=== PATIENT | male | born 1960 | race African-American/Black ===

== ENCOUNTER 2018-05-26 21:06 | Emergency (ER) | payer OTHER ==
--- NOTE | 2018-05-26 22:28 | ER Document Report ---
ED Medical Screen (RME) - General Chief Complaint: Eye Problem Stated Complaint: EYE PAIN Time Seen by Provider: 05/26/18 22:27 Notes: 57-year-old male with chief complaint of right-sided facial numbness since noon. Denies headache, denies focal numbness or weakness otherwise, denies any other current symptoms. Denies daily meds or significant medical history. - Related Data Allergies/Adverse Reactions: lactose [Lactose] Adverse Reaction (Verified 12/04/12 09:08) Past Medical History - Immunizations Hx Diphtheria, Pertussis, Tetanus Vaccination: No Physical Exam - Vital signs Vitals: Temp Pulse Resp BP Pulse Ox 97.7 F 74 16 142/91 H 96 05/26/18 21:26 05/26/18 21:26 05/26/18 21:26 05/26/18 21:26 05/26/18 21:26 - Neurological Orientation: AAOx4, Disoriented to events Pham Coma Scale Verbal: Oriented Pham Coma Scale Motor: Obeys Commands Speech: Normal Cranial nerves: Facial palsy - Inability to open mouth fully and has a droop on the right, Sensory deficit - Right-sided facial numbness. No: Forehead sparing , Gaze palsy Course - Re-evaluation Re-evalutation: Patient with right sided facial weakness and numbness, however he raises his eyebrows completely without any forehead flattening that would indicate this is Lopes's palsy. He is outside the window for TPA with symptoms that started at noon. Stroke evaluation workup initiated. - Vital Signs Vital signs: Temp Pulse Resp BP Pulse Ox 97.7 F 74 16 142/91 H 96 05/26/18 21:26 05/26/18 21:26 05/26/18 21:26 05/26/18 21:26 05/26/18 21:26 Doctor's Discharge - Discharge Referrals: LOCAL,NO [Primary Care Provider] - Follow up as needed
--- NOTE | 2018-05-26 22:57 | RADIOLOGY REPORT (SQ) ---
EXAM DESCRIPTION: XR CHEST 1 VIEW COMPLETED DATE/TME: 05/26/2018 22:27 CLINICAL HISTORY: 57 years, Male, right sided facial numbness and drooping COMPARISON: None. NUMBER OF VIEWS: 1 TECHNIQUE: Frontal view chest LIMITATIONS: None. FINDINGS: Heart size is normal. Lungs are clear. No pneumothorax IMPRESSION: Negative chest copyright 2010 [facility]- All Rights Reserved
--- NOTE | 2018-05-26 22:58 | RADIOLOGY REPORT (SQ) ---
EXAM DESCRIPTION: CT HEAD WITHOUT IV CONTRAST COMPLETED DATE/TME: 05/26/2018 22:27 CLINICAL HISTORY: 57 years, Male, right sided facial numbness and drooping This exam was performed according to our departmental dose-optimization program which includes automated exposure control, adjustment of the mA and/or kVp according to patient size and/or use of iterative reconstruction technique where applicable. FINDINGS: No acute intracranial hemorrhage, mass effect or midline shift. No extra-axial fluid collections. Ventricles and subarachnoid spaces are preserved. Oliva-white matter differentiation is preserved. Visualized paranasal sinuses and the mastoid air cells are clear. The skull is intact. IMPRESSION: No acute intracranial hemorrhage.
[2018-05-26 23:19] LABS: ABSOLUTE EOSINOPHILS # (AUTO) 0.1 10^3/uL (0.0-0.6); ABSOLUTE MONOCYTES (AUTO) 0.4 10^3/uL (0.1-1.4); ABSOLUTE NEUT (AUTO) 1.8 10^3/uL (1.7-8.2); BASOPHILS % (AUTO) 0.9 % (0-2); EOSINOPHILS % (AUTO) 3.4 % (0-6); HEMATOCRIT 44.6 % (37.9-51.0); HEMOGLOBIN 14.9 g/dL (13.5-17.0); LYMPHOCYTES % (AUTO) 46.5 % (13-45); MEAN CORPUSCULAR HGB CONC 33.3 g/dL (32.0-36.0); MEAN CORPUSCULAR VOLUME 81 fl (80-97); MONOCYTES % (AUTO) 8.8 % (3-13); PLATELET COUNT 233 10^3/uL (150-450); RED BLOOD COUNT 5.51 10^6/uL (4.35-5.55); RED CELL DISTRIBUTION WIDTH 14.2 % (11.5-14.0); SEGMENTED NEUTROPHILS % (AUTO) 40.4 % (42-78); TOTAL CELLS COUNTED % (AUTO) 100 %; WHITE BLOOD COUNT 4.3 10^3/uL (4.0-10.5)
[2018-05-26 23:22] LABS: INTERNATIONAL RATION (INR) 0.94
[2018-05-26 23:23] LABS: PARTIAL THROMBOPLASTIN TIME 28.2 SEC (23.5-35.8)
[2018-05-26 23:41] LABS: ALANINE AMINOTRANSFERASE 27 U/L (21-72); ALBUMIN 4.5 g/dL (3.5-5.0); ALKALINE PHOSPHATASE 63 U/L (38-126); ANION GAP 10 (5-19); ASPARTATE AMINO TRANSFERASE 26 U/L (17-59); BILIRUBIN,DIRECT 0.2 mg/dL (0.0-0.4); BILIRUBIN,TOTAL 0.4 mg/dL (0.2-1.3); BLOOD UREA NITROGEN 14 mg/dL (7-20); CALCIUM 9.3 mg/dL (8.4-10.2); CARBON DIOXIDE 27 mmol/L (22-30); CHLORIDE 104 mmol/L (98-107); CREATINE KINASE 314 U/L (55-170); GLUCOSE 95 mg/dL (75-110); POTASSIUM 4.3 mmol/L (3.6-5.0); SODIUM 141.2 mmol/L (137-145); TOTAL PROTEIN 7.1 g/dL (6.3-8.2)
[2018-05-26 23:53] LABS: CREATINE KINASE MB 0.44 ng/mL (<4.55)
[2018-05-26 23:54] LABS: TROPONIN I < 0.012 ng/mL
--- NOTE | 2018-05-27 02:01 | ER Document Report ---
ED General - General Mode of Arrival: Ambulatory Information source: Patient <AUSTEN MCGHEE - Last Filed: 05/27/18 03:35> <CELESTE OROZCO - Last Filed: 05/27/18 04:50> - General Chief Complaint: Eye Problem Stated Complaint: EYE PAIN Time Seen by Provider: 05/26/18 22:27 Notes: 57-year-old male who presents to the emergency department today with complaints of blurry vision in his right eye with associated pain, right eye tearing, and "drooping" of his right side of his mouth and right eyebrow. 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 Patient denies any difficulty with chewing or swallowing. 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 no difficulty with chewing/swallowing Cardiovascular: No symptoms reported Respiratory: No symptoms reported Gastrointestinal: No symptoms reported Genitourinary: No symptoms reported Male Genitourinary: No symptoms reported Musculoskeletal: No symptoms reported Skin: No symptoms reported Hematologic/Lymphatic: No symptoms reported Neurological/Psychological: No symptoms reported -: Yes All other systems reviewed and negative <AUSTEN MCGHEE - Last Filed: 05/27/18 03:35> Physical Exam <AUSTEN MCGHEE - Last Filed: 05/27/18 03:35> <CELESTE OROZCO - Last Filed: 05/27/18 04:50> - Vital signs Vitals: Temp Pulse Resp BP Pulse Ox 97.7 F 74 16 142/91 H 96 05/26/18 21:26 05/26/18 21:26 05/26/18 21:26 05/26/18 21:26 05/26/18 21:26 - Notes Notes: PHYSICAL EXAM GENERAL: Alert, interacts well. No acute distress. HEAD: Normocephalic, atraumatic. Tenderness with palpation over the right face in the V1 distribution, no tenderness with palpation over the right temporal artery. EYES: Pupils equal, round, and reactive to light. Extraocular movements intact. Slit lamp used, n o fluoroscein uptake. No cell and flare in anterior chamber. ENT: Oral mucosa moist, tongue midline. NECK: Full range of motion. Supple. Trachea midline. LUNGS: No respiratory distress. EXTREMITIES: Moves all 4 extremities spontaneously. NEUROLOGICAL: Alert and oriented x3. Normal speech. Slightly decreased sensation on the right side of his face. PSYCH: Normal affect, normal mood. SKIN: Warm, dry, normal turgor. No rashes or lesions noted. (AUSTEN MCGHEE) Weakness to the right side of the face, there is some sparing of the forehead muscles on the right-hand side, right eye will close completely but there is some weakness to the closing of the right eyelids, no droop of the right eye, there is some droop to the right side of the mouth. (CELESTE OROZCO) Course - Laboratory Result Diagrams: 05/26/18 23:00 05/26/18 23:00 <AUSTEN MCGHEE - Last Filed: 05/27/18 03:35> - Laboratory Result Diagrams: 05/26/18 23:00 05/26/18 23:00 <CELESTE OROZCO - Last Filed: 05/27/18 04:50> - Re-evaluation Re-evalutation: 05/27/18 02:56 CBC grossly unremarkable, coags normal, CMP unremarkable, chest x-ray unremarkable, CT scan of the head does not reveal any acute or chronic stroke. Patient now has sparing of his forehead. Patient has no other systemic symptoms to suggest stroke. I see no evidence of stroke, patient has Lopes's palsy. There is no evidence of injury to the eye or dendritic lesions to the eye. Patient will be started on valacyclovir, prednisone and Neurontin for the dull ache on the side of his face. Discharged home. (CELESTE OROZCO) - Vital Signs Vital signs: Temp Pulse Resp BP Pulse Ox 98.9 F 78 15 138/88 H 97 05/27/18 03:48 05/27/18 03:48 05/27/18 03:48 05/27/18 03:48 05/27/18 03:48 - Laboratory Laboratory results interpreted by me: 05/26/18 05/26/18 23:00 23:00 RDW 14.2 H Seg Neutrophils % 40.4 L Lymphocytes % 46.5 H Creatine Kinase 314 H - EKG Interpretation by Me Additional EKG results interpreted by me: 05/27/18 02:58 EKG shows sinus rhythm at a rate of 78, normal axis, normal intervals, no ST segment elevations or depressions, no T wave inversions per my interpretation. ( CELESTE OROZCO) Discharge <AUSTEN MCGHEE - Last Filed: 05/27/18 03:35> <CELESTE OROZCO - Last Filed: 05/27/18 04:50> - Discharge Clinical Impression: Right-sided Lopes's palsy Condition: Stable Disposition: HOME, SELF-CARE Additional Instructions: Bassett' Palsy You have been diagnosed as having Lopes's Palsy -- a paralysis of certain muscles of the face. It's caused by a temporary paralysis of the nerve which controls the muscles. The cause is unknown, but it's thought to be caused by a virus in most cases. The physician's exam shows that this is NOT a stroke. Lopes's Palsy usually gets better by itself. There is no cure. Sometimes cortisone-type medication is given to decrease nerve swelling. This problem is usually temporary, lasting about three weeks. During that time, you must protect the eye from injury (because the eyelid muscles often do not cover it). Ointment or a patch may be necessary. Be sure to follow up as instructed, and call the doctor at once if new symptoms arise. Report any eye pain, decreasing vision or double vision, or any numbness or weakness outside the face area. Prescriptions: Gabapentin [Neurontin 100 mg Capsule] 100 mg PO Q12 #30 capsule Prednisone [Deltasone 20 mg Tablet] 60 mg PO DAILY #30 tablet Valacyclovir HCl [Valacyclovir] 1,000 mg PO TID #30 tablet Forms: Return to Work Referrals: DOMITILA CANO MD [NO LOCAL MD] - Follow up as needed ABBY PERSAUD DO [ASSOCIATE] - Follow up as needed Scribe Attestation: 05/27/18 04:50 I personally performed the services described in the documentation, reviewed and edited the documentation which was dictated to the scribe in my presence, and it accurately records my words and actions. (CELESTE OROZCO) Scribe Documentation - Scribe Written by Scribe:: Sybil Mueller, 05/27/2018 [id number] acting as scribe for :: Papo <AUSTEN MCGHEE - Last Filed: 05/27/18 03:35>
[2018-05-27] MEDS ORDERED: PREDNISONE 20 MG TABLET PO ONE (02:55)
[2018-05-27] MEDS ORDERED: VALACYCLOVIR HCL 500 MG TABLET PO ONE (02:55)
[2018-05-27] MEDS ORDERED: ERYTHROMYCIN 0.5% OPH OINT 1 GM UNIT DOSE ONE (03:39)
[2018-05-27 03:48] VITALS: BP 138/88
--- NOTE | 2018-05-27 09:59 | EKG REPORT ---
SEVERITY:- NORMAL ECG - SINUS RHYTHM : Confirmed by: Luciana Chan MD 27-May-2018 09:58:46
== END 2018-05-27 03:49 | disposition home or self-care (01) ==
LOC: ER 21:06
DX: G51.0 Bell's palsy (principal); H57.11 Ocular pain, right eye; H53.8 Other visual disturbances
CPT/HCPCS: 93005; 99284; 36415; 82553; 82550; 85025; 85610; 85730; 80053; 84484; 71045; 70450; 93010; J7512